=== PATIENT | female | born 2005 | race Hispanic/Latino ===

== ENCOUNTER → 2025-01-29 08:40 | Outpatient (CLI) | payer OTHER, SELFPAY ==
--- NOTE | 2025-01-29 08:43 | DI.US.S_ITS ---
PROCEDURE: US EXTREMITY NONVASC LOWER RT INDICATIONS: INTERMITTENT EDEMA/PROMINENT VESSELS/LOCKING SENSATION TECHNIQUE: Real-time scanning was performed of the right knee, with image documentation. COMPARISON: None. FINDINGS: Patent popliteal vein and artery. No Enamorado's cyst is identified. No mass, fluid collection or lymphadenopathy. IMPRESSION: No sonographic abnormality involving the right popliteal fossa. If symptoms persists, consider cross-sectional imaging such as CT or MRI. Dictated by: Samir Johnson [facility] Interpreted: Jhonny Pruett MD on 01/29/2025 at 9:49 Transcribed by: NOVA on 01/29/2025 at 9:50 Approved by: Jhonny Pruett M.D. on 01/29/2025 at 15:01
== END ==
PROVIDERS: Referring Provider Family Medicine; Visit Provider Family Medicine
DX: M25.461 Effusion, right knee (principal)
CPT/HCPCS: 76882

== ENCOUNTER → 2025-01-29 08:44 | Outpatient (CLI) | payer OTHER, SELFPAY ==
--- NOTE | 2025-01-29 08:45 | DI.US.S_ITS ---
PROCEDURE: US PELVIC COMPLETE INDICATIONS: DYSMENORRHEA TECHNIQUE: Real-time scanning was performed of the pelvic organs, with image documentation. Additional endovaginal scanning was necessary due to incomplete visualization of the adnexal and endometrial structures by transabdominal scanning. COMPARISON: None. FINDINGS: Uterus: Uterus is anteverted and normal in size at 7.4 x 4.1 x 3.6 cm. The myometrium is homogeneous. The endometrium measures 11 mm combined thickness. Ovaries: The right ovary measures 3.9 x 2.9 x 2.2 cm, with a calculated ovarian volume of 12.8 cc. The left ovary measures 3.1 x 1.2 x 1.5 cm, with a calculated ovarian volume of 2.8 cc. Regressing physiologic cyst involving the right ovary measuring 1.8 cm. Medial to the right ovary there is a region of hypoechogenicity with shadowing measuring 3.0 x 2.8 x 2.1 cm. Less than 12 follicles can be seen in each ovary. No adnexal masses are seen. Other: No pathologic free abdominal or pelvic fluid. IMPRESSION: 1. No source for dysmenorrhea identified. 2. Regressing right physiologic ovarian cyst measuring 1.8 cm. 3. Region of hypoechogenicity which shadowing adjacent to the right ovary medially measuring up to 3.0 centimetres. Findings may be related to bowel; however mass such as ovarian dermoid tumor cannot be excluded and short-term follow-up is recommended. If findings persist, consider cross-sectional imaging such as CT or MRI for further assessment. We strive to produce accurate, complete, and clear reports of imaging services. To assist us in improving patient care, this report was composed using standard report templates and voice recognition software. Therefore, it may contain abnormal punctuation, insertions and/or omissions. Occasional wrong-word or sound-alike substitutions may occur. Though we review the report and make efforts to correct it, we do recommend that the report be read carefully in proper context to recognize any text inaccuracies. Dictated by: Samir GOULD Interpreted: Jhonny Pruett MD on 01/29/2025 at 9:50 Transcribed by: NOVA on 01/29/2025 at 10:09 Approved by: Jhonny Pruett M.D. on 01/29/2025 at 15:02
== END ==
PROVIDERS: Referring Provider Nurse Practitioner Family; Visit Provider Nurse Practitioner Family
DX: N94.6 Dysmenorrhea, unspecified (principal); N83.291 Other ovarian cyst, right side; M25.461 Effusion, right knee
CPT/HCPCS: 76830; 76856; 76882